=== PATIENT | male | born 1980 | race Caucasian/White ===

== ENCOUNTER → 2023-10-15 | Outpatient (CLI) | payer OTHER | LOC: MHCPAIN 13:22 | DX: M47.896 Other spondylosis, lumbar region (principal); M54.16 Radiculopathy, lumbar region; M96.1 Postlaminectomy syndrome, not elsewhere classified | CPT/HCPCS: G0463 ==

== ENCOUNTER → 2023-10-25 | Outpatient (CLI) | payer OTHER ==
[~2023-10-25] MED LIST: Lidocaine PF 1% (10 MG/ML) 5 ML VIAL ONE; Midazolam 2 MG/2 ML VIAL ONE; NS 10 ML IV ONE; ceFAZolin 2 G VIAL IV ONE; fentaNYL 50 MCG/ML 2 ML VIAL ONE
== END ==
LOC: MHCPAIN 09:25
DX: M96.1 Postlaminectomy syndrome, not elsewhere classified (principal); M54.16 Radiculopathy, lumbar region; M54.50 Low back pain, unspecified; G96.198 Other disorders of meninges, not elsewhere classified
CPT/HCPCS: C1883; J0690; J2250; J3010

== ENCOUNTER → 2023-10-30 | Outpatient (CLI) | payer OTHER | LOC: MHCPAIN 12:52 | DX: M47.816 Spondylosis without myelopathy or radiculopathy, lumbar region (principal); Z98.890 Other specified postprocedural states ==

== ENCOUNTER → 2024-01-09 | Outpatient (CLI) | payer OTHER ==
[2024-01-09 10:59] LABS: INR 1.2 (0.8-3.0); PROTHROMBIN TIME 12.7 SECONDS (9.7-12.8)
[2024-01-09 11:02] LABS: PARTIAL THROMBOPLASTIN TIME 32.3 SECONDS (26.0-37.0)
[2024-01-09 11:08] LABS: HEMATOCRIT 41.8 % (42.0-52.0); HEMOGLOBIN 14.2 g/dl (13.5-18.0); MEAN CELL VOLUME 92 fl (80.0-100.0); MEAN CORPUSCULAR HEMOGLOBIN 31 pg (27-31); MEAN CORPUSCULAR HGB CONC 34 g/dl (33.0-37.0); MEAN PLATELET VOLUME 9.7 fl (7.4-10.4); PLATELET COUNT 160 K/mm3 (130-400); RED BLOOD COUNT 4.57 M/mm3 (4.20-5.60); REDCELL DISTRIBUTION WIDTH-CV 13.5 % (11.5-14.5)
== END ==
LOC: COL.LAB 10:25
PROVIDERS: Anesthesiology Pain Medicine
DX: M96.1 Postlaminectomy syndrome, not elsewhere classified (principal)

== ENCOUNTER → 2024-03-07 | Outpatient (CLI) | payer OTHER ==
[~2024-03-07] MED LIST changes: +ASPIRIN E.C. 8181 MG PO; +B-121000 MCG PO; +CRESTOR 10MG10 MG PO; +CRESTOR5 MG PO; +FLONASE NASAL S16 GM NS; +GLUCOPHAGE500 MG/TAB PO; -Lidocaine PF 1% (10 MG/ML) 5 ML VIAL ONE; +MINIPRESS 5M5 MG/CAP PO; -Midazolam 2 MG/2 ML VIAL ONE; -NS 10 ML IV ONE; +PRILOSEC 20MG20 MG PO; +PROZAC 20MG20 MG PO; +RANEXA1000 MG PO; +RT ADVAIR 228 DISKUS IH; +SEROQUEL300 MG PO; +TEMOVATE30CR TOP; +WESTCORT TP; +ZESTRIL40 MG PO; -ceFAZolin 2 G VIAL IV ONE; -fentaNYL 50 MCG/ML 2 ML VIAL ONE
== END ==
LOC: MHCPAIN 08:39
DX: M47.896 Other spondylosis, lumbar region (principal); G03.9 Meningitis, unspecified; M54.17 Radiculopathy, lumbosacral region; M96.1 Postlaminectomy syndrome, not elsewhere classified
CPT/HCPCS: G0463